=== PATIENT | male | born 1980 | race African-American/Black ===

== ENCOUNTER 2024-11-18 16:08 | Emergency (ER) | payer OTHER, SELFPAY ==
[2024-11-18 16:20] VITALS: BP 132/69; PULSE 67; RESP 18; TEMP 36.5; O2SAT 99
--- NOTE | 2024-11-18 17:33 | ED.GENADULT ---
HPI - General Adult General Chief complaint: Wound/Laceration Stated complaint: bump on left shoulder Source: patient Mode of arrival: ambulatory Limitations: no limitations History of Present Illness HPI narrative: Patient presents for evaluation of a painful swollen lesion to the left side of his back for last week. He initially had what he describes as a bump to the affected area. Has since become reddened. He denies any fever, chills, drainage from the affected area nausea, or vomiting. He takes meloxicam on a regular basis. He is not diabetic. Related Data Home Medications ?Medication ?Instructions ?Recorded ?Confirmed ?Last Taken ?Type meloxicam 15 mg tablet mg 11/18/24 Unknown History Allergies Allergy/AdvReac Type Severity Reaction Status Date / Time No Known Allergies Allergy Verified 11/18/24 16:24 Review of Systems Review of Systems: CONSTITUTIONAL: Denies fever, chills, or sweats. EYES: Denies visual changes, redness, or discharge. ENT: Denies rhinorrhea, congestion, sore throat, or otalgia. CARDIOVASCULAR: Denies chest pain, palpitations, or edema. RESPIRATORY: Denies cough or dyspnea. GASTROINTESTINAL: Denies abdominal pain, nausea, vomiting, or diarrhea. GENITOURINARY: Denies dysuria or hematuria. SKIN: reports painful swollen lesion with a reddened appearance to left side of his back MUSCULOSKELETAL: Denies back pain, joint pain, or myalgia. NEUROLOGIC: Denies headache, numbness, dizziness, or weakness. PSYCHIATRIC: Denies anxiety or depression. [facility] Past Medical History Medical History No pertinent past medical history Surgical History Surgical History No pertinent past surgical history Family History Family History Mother Family history non-contributory Social History Social History Living arrangements: with family Gender identity (if verbalized by the patient): Male Sexual Orientation (if Verbalized by the Patient): Straight or Heterosexual Spiritual care concerns: No Exam Narrative: GENERAL: Well-appearing, well-nourished, and in no acute distress. HEAD: Normocephalic, atraumatic. EYES: PERRLA and EOMI. ENT: Nares clear, no rhinorrhea or epistaxis. Mucous membranes moist. Oropharynx without tonsillar hypertrophy exudate or other lesions. Bilateral TMs pearly beal nonbulging NECK: Supple. No adenopathy or masses. No carotid bruits or JVD CHEST: Clear to auscultation. No respiratory distress. No wheezes rales or rhonchi HEART: Regular rate and rhythm. No murmur heard. Normal peripheral pulses. ABDOMEN: Soft, nontender, nondistended, normal active bowel sounds. EXTREMITIES: Normal range of motion. No edema. SKIN: there is an approximately 2 cm raised indurated mass to the left upper back with 2.5 x 3 cm area of surrounding redness. no underlying fluctuance. NEURO: No focal deficits. Alert and oriented x3. PSYCH: Normal mood and affect. Course Course Emergency Course: This is a 44-year-old male who presented for evaluation of a painful swollen lesion to the left upper back. This appears to be an infected sebaceous cyst. Will discharge with cephalexin and bactrim. He should follow up with his primary care provider to have cyst excision. He should go to the emergency department for worsening symptoms. Patient in agreement with plan of care. Level of Care: Express Care Visit Vital Signs Vital signs: Vital Signs Temperature 36.5 C 11/18/24 16:20 Pulse Rate 67 11/18/24 16:20 Respiratory Rate 18 11/18/24 16:20 Blood Pressure 132/69 11/18/24 16:20 Pulse Oximetry 99 11/18/24 16:20 Oxygen Delivery Room Air 11/18/24 16:20 Temperature 36.5 C 11/18/24 16:20 Pulse Rate 67 11/18/24 16:20 Respiratory Rate 18 11/18/24 16:20 Blood Pressure 132/69 11/18/24 16:20 Pulse Oximetry 99 11/18/24 16:20 Oxygen Delivery Room Air 11/18/24 16:20 Medical Decision Making Vital Signs Vital Signs: Vital Signs Temperature 36.5 C 11/18/24 16:20 Pulse Rate 67 11/18/24 16:20 Respiratory Rate 18 11/18/24 16:20 Blood Pressure 132/69 11/18/24 16:20 Pulse Oximetry 99 11/18/24 16:20 Oxygen Delivery Room Air 11/18/24 16:20 Temperature 36.5 C 11/18/24 16:20 Pulse Rate 67 11/18/24 16:20 Respiratory Rate 18 11/18/24 16:20 Blood Pressure 132/69 11/18/24 16:20 Pulse Oximetry 99 11/18/24 16:20 Oxygen Delivery Room Air 11/18/24 16:20 Discharge Plan Discharge Clinical Impression: Infected sebaceous cyst Patient Disposition: Home Condition: Stable Instructions: Antibiotic Form, Cellulitis (ED), Epidermal Inclusion Cysts (ED) Additional Instructions: APPLICATION OF WARM COMPRESSES MAY HELP YOUR SYMPTOMS PLEASE DO NOT SQUEEZE THE AREA PLEASE FOLLOW UP WITH YOUR PRIMARY CARE PROVIDER TO HAVE THE CYST REMOVED Patient Language: Setswana Prescriptions: New sulfamethoxazole-trimethoprim [Bactrim DS] 800-160 mg tablet 1 tablet PO Q12H Qty: 20 0RF cephalexin 500 mg capsule 500 mg PO Q6H 10 Days Qty: 40 0RF No Action meloxicam 15 mg tablet Follow-up/Referrals: Saritha,MD Sumanth [Primary Care Provider] Time of Disposition: 17:31
== END 2024-11-18 17:43 | disposition home or self-care (01) ==
PROVIDERS: Emergency Provider Nurse Practitioner; PCP Internal Medicine
DX: L72.3 Sebaceous cyst (principal)
CPT/HCPCS: 99203; G0463